=== PATIENT | female | born 1960 | race Two or more races ===

== ENCOUNTER 2017-07-04 23:15 | Emergency (ER) | payer MEDICAID ==
[~2017-07-04] VITALS: Ht 165.1 cm; Wt 68.0 kg
[2017-07-05 05:00] VITALS: BP 142/77
== END 2017-07-05 05:23 | disposition left against medical advice (07) ==
LOC: EDBD 23:15 → ER 23:23
DX: F41.9 Anxiety disorder, unspecified (principal); F32.9 Major depressive disorder, single episode, unspecified; J95.03 Malfunction of tracheostomy stoma; Z86.73 Personal history of transient ischemic attack (TIA), and cerebral infarction without residual deficits; I10 Essential (primary) hypertension; E11.9 Type 2 diabetes mellitus without complications; E78.5 Hyperlipidemia, unspecified; Z46.82 Encounter for fitting and adjustment of non-vascular catheter
CPT/HCPCS: 99284; J7030

== ENCOUNTER 2025-02-24 21:37 | Inpatient (IN) | payer MEDICARE, MEDICAID ==
[~2025-02-24] VITALS: Ht 152.4 cm; Wt 53.0 kg
[2025-02-24 21:56] LABS: Urine Bacteria None Seen /hpf (None Seen)
[2025-02-24 22:22] LABS: Basophils # (auto) 0 10 ^3/uL (0-0.2); Basophils % (auto) 0.4 % (0.0-2.0); Chloride 100 mmol/L (98-107); Eosinophils # (auto) 0 10 ^3/uL (0-0.8); Eosinophils % (auto) 0.3 % (0.0-7.0); Hematocrit 44.8 % (36.0-46.0); Hemoglobin 15.5 g/dL (12.2-16.2); Lymphocytes % (auto) 12.2 % (10.0-50.0); Mean Corpuscular Hemoglobin 32.7 pg (28.0-32.0); Mean Corpuscular Hgb Conc. 34.5 g/dL (32.0-36.0); Mean Corpuscular Volume 94.8 fL (80.0-100.0); Monocytes # (auto) 0.8 10 ^3/uL (0-1.3); Neutrophils # (auto) 6.6 10 ^3/uL (1.6-8.6); Neutrophils % (auto) 78.1 % (37.0-80.0); Nucleated Red Blood Cells % 0.1 %; Platelet Count (auto) 149 10^3/uL (140-450); Red Blood Cells 4.72 10^6/uL (4.0-5.20); Red Cell Distribution Width 13.1 % (11.8-14.3); Sodium 140 mmol/L (136-145); White Blood Cell 8.5 10^3/uL (4.4-10.8)
[2025-02-24 22:23] LABS: Anion Gap 10 (5-15); Carbon Dioxide 30 mmol/L (20-31)
[2025-02-24 22:28] LABS: BUN/Creatinine Ratio 25.5 (10.0-20.0); Blood Urea Nitrogen 13 mg/dL (9-23); Lipase 44 U/L (12-53)
--- NOTE | 2025-02-24 22:28 | ED.PDOC ---
History of Present Illness HPI Comments 64-year-old female is brought in by daughter for 1 day history of intermittent, nonradiating left lower quadrant abdominal pain. Patient has a history of CVA with deficits, prediabetes, hyperlipidemia, hypertension, and PEG tube. She endorses on pain onset every 30 minutes and having no prior history of it in the past. Also reports on 1 isolated episode of small traces of blood in her stool, yesterday. Last bowel movement was today and normal. She denies having any nausea, vomiting, diarrhea, constipation, urinary symptoms, fever, chills, further associated symptoms. Chief Complaint: Abdominal Pain Time Seen by MD: 21:40 Reviewed Notes: Nurses Notes, Medications, Allergies Information Source: Patient, Relative (Child) Mode of Arrival: Wheelchair Severity: Moderate Timing: Days Duration: Since onset Prehospital treatment: None Review of Systems: REVIEW OF SYSTEMS: No fever, no chills, or fatigue HEENT: No sore throat, no earache, no congestion, no neck pain. Cardiac: No chest pain. No palpitations. Lungs: No shortness of breath, no cough. GI: Left lower quadrant pain, no nausea, no vomiting, no diarrhea, no constipation. : No dysuria, frequency, or urgency. No hematuria. Musculoskeletal: No joint pain , no joint swelling, no extremity edema. Skin: No rash, no itching. Neuro: No headache, no dizziness, no weakness Vital Signs Vital Signs Date Time Temp Pulse Resp B/P (MAP) Pulse Ox O2 Delivery O2 Flow Rate FiO2 02/24/25 21:53 98.9 93 18 126/78 (94) 95 98.9 Physical Exam General: Awake, alert and oriented. No acute distress. Skin: Skin in warm, dry and intact. Appropriate color for ethnicity. HEENT: The head is normocephalic and atraumatic. Conjunctivae are clear without exudates or hemorrhage. Sclera is non-icteric. EOM are intact. No signs of nys tagmus. Eyelids are normal in appearance without swelling or lesions. Oral mucosa is pink and moist Neck: The neck is supple with normal range of motion. No JVD. Cardiac: Heart rate and rhythm are normal. No murmurs, gallops, or rubs are auscultated. Respiratory: No signs of respiratory distress. Lung sounds are clear in all lobes bilaterally without rales, rhonchi, or wheezes. Abdominal: Left lower quadrant tenderness. No CVA tenderness. No guarding or rigidity. Otherwise, remaining areas of the abdomen are soft, non-tender without distention, guarding or rigidity. Bowel sounds are present and normoactive in all four quadrants. Extremities: Upper and lower extremities are atraumatic in appearance without deformity or edema. Neurological: The patient is awake, alert and oriented to person, place, and time with normal speech. Speech is clear. There is no facial asymmetry. Psychiatric: Appropriate mood and affect. Good judgement and insight. 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 Was a procedure done?: No Differential Dx Considerations may include: Differential diagnoses considered include: Abdominal aortic aneurysm, DE, esophageal rupture, intestinal obstruction, mesenteric ischemia, perforated viscus or solid organ rupture, CHF with hepatomegaly, pneumonia, abscess, appendicitis, biliary disease, diverticulitis, gastritis, gastroenteritis, hepatitis, hernia, inflammatory bowel disease, pancreatitis, peptic ulcer disease, urinary tract infection, ureteral colic, constipation, GERD, irritable syndrome, abdominal wall pain, nonspecific abdominal pain, herpes zoster, nephrolithiasis. [ ]Also ruptured ectopic , ovarian torsion/cyst, tubo- ovarian abscess, PID, endometriosis, mittelschmerz. X-Ray, Labs, Meds, VS Vital Signs Date Time Temp Pulse Resp B/P (MAP) Pulse Ox O2 Delivery O2 Flow Rate FiO2 02/24/25 21:53 98.9 93 18 126/78 (94) 95 98.9 Lab Test 02/24/25 21:50 02/24/25 02:15 Range/Units White Blood Count 8.5 4.4-10.8 10^3/uL Red Blood Count 4.72 4.0-5.20 10^6/uL Hemoglobin 15.5 12.2-16.2 g/dL Hematocrit 44.8 36.0-46.0 % Mean Corpuscular Volume 94.8 80.0-100.0 fL Mean Corpuscular Hemoglobin 32.7 H 28.0-32.0 pg Mean Corpuscular Hemoglobin Concent 34.5 32.0-36.0 g/dL Red Cell Distribution Width 13.1 11.8-14.3 % Platelet Count 149 140-450 10^3/uL Mean Platelet Volume 9.6 6.9-10.8 fL Neutrophils (%) (Auto) 78.1 37.0-80.0 % Lymphocytes (%) (Auto) 12.2 10.0-50.0 % Monocytes (%) (Auto) 9.0 0.0-12.0 % Eosinophils (%) (Auto) 0.3 0.0-7.0 % Basophils (%) (Auto) 0.4 0.0-2.0 % Neutrophils # (Auto) 6.6 1.6-8.6 10 ^3/uL Lymphocytes # (Auto) 1.0 0.4-5.4 10 ^3/uL Monocytes # (Auto) 0.8 0-1.3 10 ^3/uL Eosinophils # (Auto) 0 0-0.8 10 ^3/uL Basophils # (Auto) 0 0-0.2 10 ^3/uL Nucleated Red Blood Cells 0.1 % Sodium Level 140 136-145 mmol/L Potassium Level 3.3 L 3.5-5.1 mmol/L Chloride Level 100 98-107 mmol/L Carbon Dioxide Level 30 20-31 mmol/L Anion Gap 10 5-15 Blood Urea Nitrogen 13 9-23 mg/dL Creatinine 0.51 L 0.550-1.02 mg/dL Glomerular Filtration Rate Calc 105 >90 mL/min BUN/Creatinine Ratio 25.5 H 10.0-20.0 Serum Glucose 201 H 74-106 mg/dL Lactic Acid Level 1.3 0.4-2.0 mmol/L Calcium Level 9.0 8.7-10.4 mg/dL Lipase 44 12-53 U/L Urine Color Yellow Yellow Urine Clarity Clear Clear Urine pH 8.0 5.0-9.0 Urine Specific [place] 1.021 1.001-1.035 Urine Protein Negative Negative Urine Ketones Negative Negative Urine Blood Negative Negative /uL Urine Nitrite Negative Negative Urine Bilirubin Negative Negative Urine Urobilinogen Normal Negative mg/dL Urine Leukocyte Esterase Negative Negative /uL Urine RBC <1 0 - 4 /hpf Urine Microscopic WBC 1 0-5 /HPF Urine Squamous Epithelial Cells Few <5 /hpf Urine Amorphous Crystals Few None Seen /hpf Urine Bacteria None seen None Seen /hpf Urine Glucose Normal Normal mg/dL [facility] [id number] [place] [id number] Ph: [phone] DIAGNOSTIC IMAGING Diagnostic Imaging Report : [id number] Signed PATIENT: NOE YUAN ACCT: [id number] UNIT: [id number] : 1960 LOC: ER ROOM / BED: / AGE / SEX: 64 / F ADM STATUS: REG ER SERVICE 24 ORDERING PHYSICIAN: TITI ROBLEDO MD PROCEDURE(s): ABPL - CT AB PEL WO CON-NO ORAL OR IV REASON: LLQ abdominal pain ORDER NUMBER(s): [id number], ACCESSION NUMBER(s): [id number] Exam: CT CT AB PEL WO CON-NO ORAL OR IV History: LLQ abdominal pain Comparison Study: None TECHNIQUE: Multidetector CT of the abdomen and pelvis was performed from lung bases to pubic symphysis. Imaging was performed without IV contrast. Axial, coronal, and sagittal multiplanar reformats were obtained from the axial data set by the technologist. RADIATION DOSE: DLP 6.7 mGy.cm; CTDI vol 334.37 mGy. Findings: Limited evaluation of the solid organs in the absence of IV contrast. Lungs: Mild atelectatic changes at the right lung base. Liver: Unremarkable. Gallbladder: Unremarkable. Spleen: Unremarkable. Pancreas: Unremarkable. Adrenals: Unremarkable Kidneys: Unremarkable. GI tract: No bowel obstruction. Gastric tube is noted. There is colonic diverticulosis with wall thickening and stranding about the distal descending colon. No abscess. The appendix is normal. : Unremarkable. Vasculature: Mild atherosclerotic aortoiliac calcifications. There is an 8 mm calcified splenic artery aneurysm. Lymphadenopathy: Absent Peritoneum: No ascites. Musculoskeletal: Multifocal mild age-indeterminate compression fractures associated with Schmorl's nodes involving the thoracolumbar spine, most pronounced at L4. Soft tissues: Tiny fat containing umbilical hernia. Impression: 1. Findings as above suggestive of acute diverticulitis in the appropriate clinical setting. No abscess. A posttreatment follow-up is suggested to ensure appropriate resolution and lack of underlying lesion. 2. Multifocal mild age-indeterminate compression fractures associated with Schmorl's nodes involving the thoracolumbar spine, most pronounced at L4. 3. Additional findings as detailed. ATED BY: KARIE DESIR MD DICTATED DATE/TIME: 02/24/252305 SIGNED BY: KARIE DESIR MD SIGNED DATE/TIME: 02/24/252305 CC: Time of 1ST Reevaluation: 22:10 Reevaluation 1ST: Unchanged Patient Education/Counseling: Treatment Family Education/Counseling: Treatment SEPSIS Sepsis Screen Date sepsis recognized/suspect: Feb 24, 2025 Time Sepsis recognized/suspect: 2144 Recent Procedure: No On Antibiotic Therapy: No Respiratory Rate >20: No Heart Rate >90: Yes Temp<36 C (96.8 F) or >38.3 C: No SBP <90 or MAP <65 mmHG: No New Acute Mental Status Change: No Is the patient on CPAP, BIPAP,: No Physician Orders Ct Ab Pel Wo Con-No Oral Or Iv (02/24/25 22:25) Vital Signs Date Time Temp Pulse Resp B/P (MAP) Pulse Ox O2 Delivery O2 Flow Rate FiO2 02/24/25 21:53 98.9 93 18 126/78 (94) 95 98.9 Laboratory Tests Test 02/24/25 21:50 Lactic Acid Level 1.3 mmol/L (0.4-2.0) White Blood Count 8.5 10^3/uL (4.4-10.8) Departure 1 Departure Time of Disposition: 23:43 Impression: Primary Impression: Diverticulitis of intestine Additional Impression: Hypokalemia Disposition: ADMITTED INPATIENT Condition: Stable Comments 64-year-old female who presented with left lower quadrant abdominal pain. CT abdomen and pelvis showed diverticulitis. Antibiotics initiated in the ED Patient admitted to hospitalist service for further treatment, evaluation and monitoring. Extensive evaluation was performed in attempt to identify or rule out: (See differential diagnosis section) The following tests were ordered, and results were reviewed by me and discussed with patient: (See diagnostic results section) The following test were independently interpreted by me: N/A I reviewed and agreed with the following test results read by other providers: N/A I reviewed the following notes from the pt's past medical encounters: July 04, 2017 encounter for SOB/pulled out trach Additional information was gathered from interviewing the following independent historians: Patient's daughter at bedside Discussion of management or test interpretation with external physician/other qualified health rn intensive care unit: N/A Addressed]an acute or chronic illness that poses a threat to life or bodily function: Diverticulitis Decision regarding hospitalization or escalation of hospital level of care: Risk and benefits of admission for further treatment of patient's condition was considered. Due to patient's current clinical condition, high risk of decline and poor outcome if discharged and need for further inpatient management and monitoring, patient will be admitted to the hospital. Drug therapy requiring intensive monitoring for toxicity: N/A Parenteral controlled substances: N/A Decision regarding elective major surgery with identified patient or procedure risk factors: N/A Decision regarding emergency major surgery: N/A Decision not to resuscitate or to de-escalate care because of poor prognosis: N/A Diagnosis or treatment significantly limited by social determinants of health: N/A Critical Care Note Critical Care Time?: No Stability Stability form required: No Heart Score Heart Score: Heart Score Response (Comments) Value History N/A 0 EKG N/A 0 Age N/A 0 Risk Factors N/A 0 Troponin N/A 0 Total 0 I personally scribed for TITI ROBLEDO MD ([email or web address]) on 02/24/25 at 22:28. Electronically submitted by Dawit Reyes ([email or web address]). I personally scribed for TITI ROBLEDO MD ([email or web address]) on 02/24/25 at 23:36. Electronically submitted by Dawit Reyes ([email or web address]). TITI ROBLEDO MD Feb 24, 2025 22:28
[2025-02-24 22:34] LABS: Urine Amorphous Crystal FEW /hpf (None Seen); Urine Blood Negative /uL (Negative); Urine Clarity Clear (Clear); Urine Color Yellow (Yellow); Urine Protein, UAD Negative (Negative); Urine Specific Gravity 1.021 (1.001-1.035); Urine Squamous Epithelial Cell FEW /hpf (<5); Urine Urobilinogen Normal (Negative); Urine WBC 1 /HPF (0-5)
[2025-02-24 22:37] LABS: Glucose 201 mg/dL (74-106); Potassium 3.3 mmol/L (3.5-5.1)
--- NOTE | 2025-02-24 23:08 | DVH ---
Exam: CT CT AB PEL WO CON-NO ORAL OR IV History: LLQ abdominal pain Comparison Study: None TECHNIQUE: Multidetector CT of the abdomen and pelvis was performed from lung bases to pubic symphysi s. Imaging was performed without IV contrast. Axial, coronal, and sagittal multiplanar reformats were obtained from the axial data set by the technologist. RADIATION DOSE: DLP 6.7 mGy.cm; CTDI vol 334.37 mGy. Findings: Limited evaluation of the solid organs in the absence of IV contrast. Lungs: Mild atelectatic changes at the right lung base. Liver: Unremarkable. Gallbladder: Unremarkable. Spleen: Unremarkable. Pancreas: Unremarkable. Adrenals: Unremarkable Kidneys: Unremarkable. GI tract: No bowel obstruction. Gastric tube is noted. There is colonic diverticulosis with wall thic kening and stranding about the distal descending colon. No abscess. The appendix is normal. : Unremarkable. Vasculature: Mild atherosclerotic aortoiliac calcifications. There is an 8 mm calcified splenic arter y aneurysm. Lymphadenopathy: Absent Peritoneum: No ascites. Musculoskeletal: Multifocal mild age-indeterminate compression fractures associated with Schmorl's no raheel involving the thoracolumbar spine, most pronounced at L4. Soft tissues: Tiny fat containing umbilical hernia. Impression: 1. Findings as above suggestive of acute diverticulitis in the appropriate clinical setting. No absce ss. A posttreatment follow-up is suggested to ensure appropriate resolution and lack of underlying le ramirez. 2. Multifocal mild age-indeterminate compression fractures associated with Schmorl's nodes involving the thoracolumbar spine, most pronounced at L4. 3. Additional findings as detailed.
[2025-02-25] MEDS: POTASSIUM CHL 20 Meq TABLET PO ONE
[2025-02-25] MEDS ORDERED: ONDANSETRON HCL 4 MG/2 ML VIAL IV PRN (00:15)
[2025-02-25] MEDS ORDERED: DEXTROSE (50%) 50ML SYRG IV PRN (00:15)
[2025-02-25] MEDS: levoFLOXacin 500MG 100 ML IV ONE (00:21)
--- NOTE | 2025-02-25 01:01 | DVHHP2 ---
History of Present Illness Reason for Visit: Abdominal pain History of Present Illness 64-year-old female presents for evaluation of abdominal pain. Patient endorses a one day history of sharp lower abdominal pain that is nonradiating. Denies nausea or vomiting. No fever or chills. No diarrhea. Past Medical History CVA, hypertension, dyslipidemia, diabetes Past Surgical History Hysterectomy, peg tube Family History Noncontributory Smoke: No ALCOHOL: none Drugs: None Lives: with Family Review of Systems Review of Systems Review of systems are currently negative otherwise addressed in HPI. Allergies: Coded Allergies: NO KNOWN ALLERGIES (Unverified , 02/24/25) Medications Current Medications Medications Dose Ordered Sig/Ar Route Start Time Stop Time Status Last Admin Dose Admin Ceftriaxone Sodium 50 ml @ 100 mls/hr DAILY@09 IV 02/25/25 09:00 Metronidazole 100 ml @ 100 mls/hr Q8HR@0000,0800,1600 IV 02/25/25 08:00 Pantoprazole Sodium 40 mg DAILY IV 02/25/25 10:00 Acetaminophen/ Hydrocodone Bitart 1 tab Q4HP PRN PO 02/25/25 00:15 Ondansetron HCl 4 mg Q4HP PRN IV 02/25/25 00:15 Acetaminophen 650 mg Q6HP PRN PO 02/25/25 00:15 Diagnostic Test (Pha) 1 strip ACHS 02/25/25 07:00 Insulin Human Regular ACHS SC 02/25/25 07:00 Dextrose 50 ml UD PRN IV 02/25/25 00:15 Exam Vital Signs Vital Signs Date Time Temp Pulse Resp B/P (MAP) Pulse Ox O2 Delivery O2 Flow Rate FiO2 02/24/25 21:53 98.9 93 18 126/78 (94) 95 98.9 Exam Gen: 64-year-old female in mild distress Skin: Warm, dry, normal color and texture, no rash. HEENT: Normocephalic atraumatic, mucous membranes moist and pink. Neck: Cervical and supraclavicular nodes normal without enlargement, trachea is midline, thyroid gland is normal without masses. Pulmonary: Clear to auscultation and percussion bilaterally. Cardiac: Regular rate and rhythm. No murmur Abdomen: Soft, lower abdominal tenderness, nondistended, bowel sounds present all 4 quadrants, no guarding, no rigidity, no organomegaly. Extremities: No cyanosis, clubbing, no edema Neuro: History of CVA with speech deficits Labs/Xrays ORDERING PHYSICIAN: TITI ROBLEDO MD PROCEDURE(s): ABPL - CT AB PEL WO CON-NO ORAL OR IV REASON: LLQ abdominal pain ORDER NUMBER(s): [id number], ACCESSION NUMBER(s): [id number] Exam: CT CT AB PEL WO CON-NO ORAL OR IV History: LLQ abdominal pain Comparison Study: None TECHNIQUE: Multidetector CT of the abdomen and pelvis was performed from lung bases to pubic symphysis. Imaging was performed without IV contrast. Axial, coronal, and sagittal multiplanar reformats were obtained from the axial data set by the technologist. RADIATION DOSE: DLP 6.7 mGy.cm; CTDI vol 334.37 mGy. Findings: Limited evaluation of the solid organs in the absence of IV contrast. Lungs: Mild atelectatic changes at the right lung base. Liver: Unremarkable. Gallbladder: Unremarkable. Spleen: Unremarkable. Pancreas: Unremarkable. Adrenals: Unremarkable Kidneys: Unremarkable. GI tract: No bowel obstruction. Gastric tube is noted. There is colonic diverticulosis with wall thickening and stranding about the distal descending colon. No abscess. The appendix is normal. : Unremarkable. Vasculature: Mild atherosclerotic aortoiliac calcifications. There is an 8 mm calcified splenic artery aneurysm. Lymphadenopathy: Absent Peritoneum: No ascites. Musculoskeletal: Multifocal mild age-indeterminate compression fractures associated with Schmorl's nodes involving the thoracolumbar spine, most pronoun bella at L4. Soft tissues: Tiny fat containing umbilical hernia. Impression: 1. Findings as above suggestive of acute diverticulitis in the appropriate clinical setting. No abscess. A posttreatment follow-up is suggested to ensure appropriate resolution and lack of underlying lesion. 2. Multifocal mild age-indeterminate compression fractures associated with Schmorl's nodes involving the thoracolumbar spine, most pronounced at L4. 3. Additional findings as detailed. ATED BY: KARIE DESIR MD Labs Test 02/24/25 21:50 02/24/25 02:15 Range/Units White Blood Count 8.5 4.4-10.8 10^3/uL Red Blood Count 4.72 4.0-5.20 10^6/uL Hemoglobin 15.5 12.2-16.2 g/dL Hematocrit 44.8 36.0-46.0 % Mean Corpuscular Volume 94.8 80.0-100.0 fL Mean Corpuscular Hemoglobin 32.7 H 28.0-32.0 pg Mean Corpuscular Hemoglobin Concent 34.5 32.0-36.0 g/dL Red Cell Distribution Width 13.1 11.8-14.3 % Platelet Count 149 140-450 10^3/uL Mean Platelet Volume 9.6 6.9-10.8 fL Neutrophils (%) (Auto) 78.1 37.0-80.0 % Lymphocytes (%) (Auto) 12.2 10.0-50.0 % Monocytes (%) (Auto) 9.0 0.0-12.0 % Eosinophils (%) (Auto) 0.3 0.0-7.0 % Basophils (%) (Auto) 0.4 0.0-2.0 % Neutrophils # (Auto) 6.6 1.6-8.6 10 ^3/uL Lymphocytes # (Auto) 1.0 0.4-5.4 10 ^3/uL Monocytes # (Auto) 0.8 0-1.3 10 ^3/uL Eosinophils # (Auto) 0 0-0.8 10 ^3/uL Basophils # (Auto) 0 0-0.2 10 ^3/uL Nucleated Red Blood Cells 0.1 % Sodium Level 140 136-145 mmol/L Potassium Level 3.3 L 3.5-5.1 mmol/L Chloride Level 100 98-107 mmol/L Carbon Dioxide Level 30 20-31 mmol/L Anion Gap 10 5-15 Blood Urea Nitrogen 13 9-23 mg/dL Creatinine 0.51 L 0.550-1.02 mg/dL Glomerular Filtration Rate Calc 105 >90 mL/min BUN/Creatinine Ratio 25.5 H 10.0-20.0 Serum Glucose 201 H 74-106 mg/dL Lactic Acid Level 1.3 0.4-2.0 mmol/L Calcium Level 9.0 8.7-10.4 mg/dL Lipase 44 12-53 U/L Urine Color Yellow Yellow Urine Clarity Clear Clear Urine pH 8.0 5.0-9.0 Urine Specific [place] 1.021 1.001-1.035 Urine Protein Negative Negative Urine Ketones Negative Negative Urine Blood Negative Negative /uL Urine Nitrite Negative Negative Urine Bilirubin Negative Negative Urine Urobilinogen Normal Negative mg/dL Urine Leukocyte Esterase Negative Negative /uL Urine RBC <1 0 - 4 /hpf Urine Microscopic WBC 1 0-5 /HPF Urine Squamous Epithelial Cells Few <5 /hpf Urine Amorphous Crystals Few None Seen /hpf Urine Bacteria None seen None Seen /hpf Urine Glucose Normal Normal mg/dL Assessment/Plan Assessment/Plan Assessment Acute abdominal pain Acute diverticulitis Hypokalemia Diabetes mellitus History of CVA Plan Admit the patient to [facility] to the hospitalist Heather/Flagyl GI consult Pain management Continue treatment per orders. Plan discussed with: Patient My Orders Orders - CRICKET SIERRA Procedure Category Date Status Time Admit ADMIT 02/24/25 Transmitted 23:58 Ceftriaxone 1gm/50ml PHA 02/25/25 In Process D5w (Rocephin) 09:00 * [facility] Assistant CONS 02/25/25 Transmitted 00:12 Pantoprazole PHA 02/25/25 In Process (Protonix) 10:00 Hydrocodone-Acet PHA 02/25/25 In Process 5/325mg Tab ([place]inn 00:15 Ondansetron Hcl PHA 02/25/25 In Process (Zofran) 00:15 Complete Blood Count LAB 02/26/25 Verified 04:00 Condition: Stable NEO 02/25/25 In Process 00:12 Acetaminophen Tablet PHA 02/25/25 In Process (Tylenol Tablet) 00:15 Glucose Blood PHA 02/25/25 In Process (Accu-Chek Comfort 07:00 Insulin R (Human) PHA 02/25/25 In Process (Insulin R) 07:00 Dextrose 50% Syringe PHA 02/25/25 In Process 00:15 Basic Metabolic Panel LAB 02/26/25 Verified 04:00 Metronidazole PHA 02/25/25 In Process 500mg/100ml (Flagyl 08:00 Date of Service: Feb 24, 2025 Billing Provider: CRICKET SIERRA Common Visit Codes: [id number] INP/OBS CARE (HIGH) CRICKET SIERRA Feb 25, 2025 01:01
[2025-02-25] MEDS: metroNIDAZOLE 500MG/100ML 100 ML IV ONE (01:25)
[2025-02-25] MEDS: HYDROcodone-ACET 5/325MG TAB PO PRN (02:32)
[2025-02-25] MEDS: KETOROLAC TROMETH 30 MG/ML 1ML VIAL IV ONE (03:55)
[2025-02-25] MEDS: SODIUM CHLORIDE 0.9% 1,000 ML IV ONE (03:58)
[2025-02-25] MEDS: ACETAMINOPHEN 325 MG TAB PO PRN (04:51)
[2025-02-25] MEDS: ACCU-CHEK COMFORT CURVE STRIP VI SCH (07:40)
[2025-02-25] MEDS: InsuLIN REG 1unit/0.01ml Soln (100units/ml) SC SCH (07:47)
[2025-02-25 07:54] VITALS: PULSE 78; RESP 20; O2SAT 94
[2025-02-25] MEDS: metroNIDAZOLE 500MG/100ML 100 ML IV SCH (08:56)
[2025-02-25] MEDS: cefTRIAXone 1GM/50ML D5W 50 ML IV SCH (10:31)
[2025-02-25] MEDS: PANTOPRAZOLE 40 MG/10 ML VIAL INJ IV SCH (10:31)
[2025-02-25 14:49] VITALS: BP 121/72; PULSE 79; RESP 17; TEMP 97.2; O2SAT 97
[2025-02-25] MEDS ORDERED: TRAZ-228 PO (14:53)
[2025-02-25] MEDS ORDERED: ATOR-47 PO (14:53)
[2025-02-25 16:30] VITALS: BP 120/77; PULSE 82; RESP 17; TEMP 97.5; O2SAT 94
--- NOTE | 2025-02-25 17:32 | DVHPN2 ---
Subjective Seen and examined at bedside, daughter at bedside. Patient has a CVA with PEG Tube. Changes from previous H/P or p: No Changes Objective Vitals Vital Signs Date Time Temp Pulse Resp B/P (MAP) Pulse Ox O2 Delivery O2 Flow Rate FiO2 02/25/25 16:30 97.5 82 17 120/77 (91) 94 97.5 02/25/25 14:49 Room Air* 0 21 General Appearance: Alert, Oriented X3, Cooperative, No acute distress HEENT: Atraumatic Lungs: Clear to auscultation Cardiovascular: Regular rate, Normal S1, Normal S2 Abdomen: Other (Epigastric Tenderness. PEG Tube) Rectal: Deferred Musculoskeletal: Normal sensory function Psych/Mental Status: Mental status NL Medications Current Medications Medications Dose Ordered Sig/Ar Route Start Time Stop Time Status Last Admin Dose Admin Ceftriaxone Sodium 50 ml @ 100 mls/hr DAILY@09 IV 02/25/25 09:00 02/25/25 10:31 100 MLS/HR Metronidazole 100 ml @ 100 mls/hr Q8HR@0000,0800,1600 IV 02/25/25 08:00 02/25/25 16:57 100 MLS/HR Pantoprazole Sodium 40 mg DAILY IV 02/25/25 10:00 02/25/25 10:31 40 MG Acetaminophen/ Hydrocodone Bitart 1 tab Q4HP PRN PO 02/25/25 00:15 Ondansetron HCl 4 mg Q4HP PRN IV 02/25/25 00:15 Acetaminophen 650 mg Q6HP PRN PO 02/25/25 00:15 02/25/25 04:51 650 MG Diagnostic Test (Pha) 1 strip ACHS 02/25/25 07:00 02/25/25 17:05 1 STRIP Insulin Human Regular ACHS SC 02/25/25 07:00 02/25/25 14:31 4 UNITS Dextrose 50 ml UD PRN IV 02/25/25 00:15 Laboratory Results Laboratory Tests 02/24/25 21:50 Chemistry Test 02/24/25 21:50 Calcium Level 9.0 mg/dL (8.7-10.4) Lipid panel Test 02/24/25 21:50 Lipase 44 U/L (12-53) HgA1c, TSH Test 02/24/25 21:50 Hemoglobin A1c 6.9 % A1C (<5.7) H Urinalysis Test 02/24/25 02:15 Urine Color Yellow (Yellow) Urine Clarity Clear (Clear) Urine pH 8.0 (5.0-9.0) Urine Specific [place] 1.021 (1.001-1.035) Urine Protein Negative (Negative) Urine Ketones Negative (Negative) Urine Blood Negative /uL (Negative) Urine Nitrite Negative (Negative) Urine Bilirubin Negative (Negative) Urine Urobilinogen Normal mg/dL (Negative) Urine Leukocyte Esterase Negative /uL (Negative) Urine RBC <1 /hpf (0 - 4) Urine Microscopic WBC 1 /HPF (0-5) Urine Squamous Epithelial Cells Few /hpf (<5) Urine Amorphous Crystals Few /hpf (None Seen) Urine Bacteria None seen /hpf (None Seen) Urine Glucose Normal mg/dL (Normal) Assessment/Plan Assessment/Plan Acute abdominal pain due to Acute diverticulitis- No Tube Feedings. Hypokalemia- Supplemented Diabetes mellitus A1c 6.9- SSI History of CVA unable to speak. Goals of care discussion >18 mins FULL CODE Plan discussed with: Patient My Orders Orders - YOMAIRA FARAH MD Procedure Category Date Status Time Comprehensive LAB 02/26/25 Verified Metabolic Panel 04:00 Magnesium LAB 02/26/25 Verified 04:00 Date of Service: Feb 25, 2025 Billing Provider: YOMAIRA FARAH MD Common Visit Codes: [id number] INP/OBS CARE(HIGH) Secondary Visit Codes: [id number] CARE PLAN 30 MINUTES YOMAIRA FARAH MD Feb 25, 2025 17:32
[2025-02-25 21:00] VITALS: BP 117/76; PULSE 79; RESP 17; TEMP 97.5; O2SAT 94
[2025-02-25] MEDS: MORPHINE SULFATE INJ 2 MG/ml SYRG IV PRN (21:51)
--- NOTE | 2025-02-25 22:36 | DVHINCON2 ---
Date of service: Feb 25, 2025 Referring Physician Josue Bagley Reason for Consultation Acute diverticulitis History of Present Illness 64-year-old female presents for evaluation of abdominal pain. Patient endorses a one day history of sharp lower abdominal pain that is nonradiating. Denies nausea or vomiting. No fever or chills. No diarrhea. Past Medical History Past Medical History CVA, hypertension, dyslipidemia, diabetes Past Surgical History Past Surgical History Hysterectomy, peg tube Family History: Diabetes mellitus G8 MOTHER Allergies: Coded Allergies: Codeine (Verified Allergy, Unknown, 02/25/25) Iodine (Verified Allergy, Unknown, 02/25/25) Metrizamide (Verified Allergy, Unknown, 02/25/25) Yellow Dye (Verified Allergy, Unknown, 02/25/25) Uncoded Allergies: CONTRAST (Adverse Reaction, Intermediate, 02/25/25) Home Meds Reported Medications Atorvastatin Calcium (ATORVASTATIN CALCIUM) 80 Mg Tab, 1 TAB PO DAILY, #30 TAB 5 Refills 02/25/25 Trazodone Hcl (Trazodone Hcl) 100 Mg Tab, 1 TAB PO QPM, #30 TAB 1 Refill 02/25/25 Current Medications Current Medications Medications (Trade) Dose Ordered Sig/Ar Route PRN Reason Start Time Stop Time Status Last Admin Ceftriaxone Sodium 50 ml @ 100 mls/hr DAILY@09 IV 02/25/25 09:00 02/25/25 10:31 Metronidazole 100 ml @ 100 mls/hr Q8HR@0000,0800,1600 IV 02/25/25 08:00 02/25/25 16:57 Pantoprazole Sodium (Protonix) 40 mg DAILY IV 02/25/25 10:00 02/25/25 10:31 Acetaminophen/ Hydrocodone Bitart ([place] 5/325MG Tab) 1 tab Q4HP PRN PO MODERATE PAIN (4-6 PAIN SCALE) 02/25/25 00:15 Ondansetron HCl (Zofran) 4 mg Q4HP PRN IV NAUSEA / VOMITING 02/25/25 00:15 Acetaminophen (Tylenol Tablet) 650 mg Q6HP PRN PO PAIN SCALE 1-3 OR TEMP>100.4 02/25/25 00:15 02/25/25 04:51 Diagnostic Test (Pha) (Accu-Chek Comfort Curve T) 1 strip ACHS 02/25/25 07:00 02/25/25 22:09 Insulin Human Regular (InsuLIN R) ACHS SC 02/25/25 07:00 02/25/25 22:15 Dextrose 50 ml UD PRN IV Blood Sugar LESS THAN 60 02/25/25 00:15 Morphine Sulfate 1 mg Q4HP PRN IV SEVERE PAIN (7-10 PAIN SCALE) 02/25/25 18:30 02/25/25 21:51 Vital Signs Vital Signs Date Time Temp Pulse Resp B/P (MAP) Pulse Ox O2 Delivery O2 Flow Rate FiO2 02/25/25 21:51 79 17 117/76 02/25/25 21:00 97.5 94 97.5 02/25/25 14:49 Room Air* 0 21 Physical Exam Gen: 64-year-old female in mild distress Skin: Warm, dry, normal color and texture, no rash. HEENT: Normocephalic atraumatic, mucous membranes moist and pink. Neck: Cervical and supraclavicular nodes normal without enlargement, trachea is midline, thyroid gland is normal without masses. Pulmonary: Clear to auscultation and percussion bilaterally. Cardiac: Regular rate and rhythm. No murmur Abdomen: Soft, lower abdominal tenderness, nondistended, bowel sounds present all 4 quadrants, no guarding, no rigidity, no organomegaly. Extremities: No cyanosis, clubbing, no edema Neuro: History of CVA with speech deficits Labs/Diagnostic Data Labs Test 02/25/25 21:47 02/24/25 21:50 02/24/25 02:15 Range/Units POC Glucose 133 H 70-106 mg/dl White Blood Count 8.5 4.4-10.8 10^3/uL Red Blood Count 4.72 4.0-5.20 10^6/uL Hemoglobin 15.5 12.2-16.2 g/dL Hematocrit 44.8 36.0-46.0 % Mean Corpuscular Volume 94.8 80.0-100.0 fL Mean Corpuscular Hemoglobin 32.7 H 28.0-32.0 pg Mean Corpuscular Hemoglobin Concent 34.5 32.0-36.0 g/dL Red Cell Distribution Width 13.1 11.8-14.3 % Platelet Count 149 140-450 10^3/uL Mean Platelet Volume 9.6 6.9-10.8 fL Neutrophils (%) (Auto) 78.1 37.0-80.0 % Lymphocytes (%) (Auto) 12.2 10.0-50.0 % Monocytes (%) (Auto) 9.0 0.0-12.0 % Eosinophils (%) (Auto) 0.3 0.0-7.0 % Basophils (%) (Auto) 0.4 0.0-2.0 % Neutrophils # (Auto) 6.6 1.6-8.6 10 ^3/uL Lymphocytes # (Auto) 1.0 0.4-5.4 10 ^3/uL Monocytes # (Auto) 0.8 0-1.3 10 ^3/uL Eosinophils # (Auto) 0 0-0.8 10 ^3/uL Basophils # (Auto) 0 0-0.2 10 ^3/uL Nucleated Red Blood Cells 0.1 % Sodium Level 140 136-145 mmol/L Potassium Level 3.3 L 3.5-5.1 mmol/L Chloride Level 100 98-107 mmol/L Carbon Dioxide Level 30 20-31 mmol/L Anion Gap 10 5-15 Blood Urea Nitrogen 13 9-23 mg/dL Creatinine 0.51 L 0.550-1.02 mg/dL Glomerular Filtration Rate Calc 105 >90 mL/min BUN/Creatinine Ratio 25.5 H 10.0-20.0 Serum Glucose 201 H 74-106 mg/dL Hemoglobin A1c 6.9 H <5.7 % A1C Lactic Acid Level 1.3 0.4-2.0 mmol/L Calcium Level 9.0 8.7-10.4 mg/dL Lipase 44 12-53 U/L Urine Color Yellow Yellow Urine Clarity Clear Clear Urine pH 8.0 5.0-9.0 Urine Specific [place] 1.021 1.001-1.035 Urine Protein Negative Negative Urine Ketones Negative Negative Urine Blood Negative Negative /uL Urine Nitrite Negative Negative Urine Bilirubin Negative Negative Urine Urobilinogen Normal Negative mg/dL Urine Leukocyte Esterase Negative Negative /uL Urine RBC <1 0 - 4 /hpf Urine Microscopic WBC 1 0-5 /HPF Urine Squamous Epithelial Cells Few <5 /hpf Urine Amorphous Crystals Few None Seen /hpf Urine Bacteria None seen None Seen /hpf Urine Glucose Normal Normal mg/dL Impression: 1. Findings as above suggestive of acute diverticulitis in the appropriate clinical setting. No abscess. A posttreatment follow-up is suggested to ensure appropriate resolution and lack of underlying lesion. 2. Multifocal mild age-indeterminate compression fractures associated with Schmorl's nodes involving the thoracolumbar spine, most pronounced at L4. 3. Additional findings as detailed. Problems(with codes): (1) Diverticulitis of intestine (2) Hypokalemia Plan/Recommendation Plan Continue IV fluid hydration Continue IV antibiotics ; discharge planning on oral antibiotics Start with ice chips and water and advance to clear liquid diet Outpatient follow up with GI Services for elective colonoscopy Plan discussed with: Other (None) NAE DELGADO MD Feb 25, 2025 22:36
[2025-02-26] VITALS (8 sets, daily range): BP systolic 100–128; BP diastolic 64–73; PULSE 74–83; RESP 16–18; TEMP 97.2–98.3; O2SAT 94–96
[2025-02-26 05:59] LABS: Basophils # (auto) 0 10 ^3/uL (0-0.2); Basophils % (auto) 0.3 % (0.0-2.0); Eosinophils # (auto) 0.1 10 ^3/uL (0-0.8); Hematocrit 40.8 % (36.0-46.0); Lymphocytes # (auto) 0.9 10 ^3/uL (0.4-5.4); Lymphocytes % (auto) 14.4 % (10.0-50.0); Mean Corpuscular Hemoglobin 32.6 pg (28.0-32.0); Mean Corpuscular Hgb Conc. 34.3 g/dL (32.0-36.0); Monocytes # (auto) 0.6 10 ^3/uL (0-1.3); Neutrophils # (auto) 4.7 10 ^3/uL (1.6-8.6); Neutrophils % (auto) 74.3 % (37.0-80.0); Platelet Count (auto) 137 10^3/uL (140-450); Red Blood Cells 4.29 10^6/uL (4.0-5.20); Red Cell Distribution Width 13.1 % (11.8-14.3); White Blood Cell 6.4 10^3/uL (4.4-10.8)
[2025-02-26 06:17] LABS: Alanine Aminotransferase 22 U/L (7-40); Albumin 3.9 g/dL (3.2-4.8); Alkaline Phosphatase 112 U/L (46-116); Anion Gap 8 (5-15); Aspartate Aminotransferase 21 U/L (<34); BUN/Creatinine Ratio 26.4 (10.0-20.0); Bilirubin, Total 0.8 mg/dL (0.2-1.0); Blood Urea Nitrogen 14 mg/dL (9-23); Calcium 8.9 mg/dL (8.7-10.4); Chloride 104 mmol/L (98-107); Glucose 94 mg/dL (74-106); Magnesium 2.5 mg/dL (1.6-2.6); Potassium 3.8 mmol/L (3.5-5.1); Sodium 145 mmol/L (136-145); Total Protein 6.2 g/dL (5.7-8.2)
[2025-02-26 06:23] LABS: Carbon Dioxide 33 mmol/L (20-31)
--- NOTE | 2025-02-26 11:54 | DVHPN2 ---
Progress Note Date Seen: Feb 26, 2025 Resident Creating Document: ANGELA CASH RESIDENT Medical Necessity Reason Pt with a Central, PICC or Fol: No Subjective Review of Systems Patient is 64 years old female with past medical history of CVA, hypertension, dyslipidemia, diabetes, history of PEG tube after stroke came with a complaint of abdominal pain sharp in nature. CT abdomen revealed- acute diverticulitis in the appropriate clinical setting. No abscess.. Multifocal mild age- indeterminate compression fractures associated with Schmorl's nodes involving the thoracolumbar spine, most pronounced at L4. Patient was seen today for clinical evaluation at bedside Patient reported intermittent crampy abdominal pain but pain better than Due for dietary consult As per patient she did not have a bowel movement last 3 days Patient has a PEG tube placed after patient had stroke Patient reported no previous endoscopy or colonoscopy Objective vital signs Vital Sign Date Time Temp Pulse Resp B/P (MAP) Pulse Ox O2 Delivery O2 Flow Rate FiO2 02/26/25 09:00 97.2 74 17 111/72 (85) 95 97.2 02/25/25 20:00 Room Air* 0 21 Total Intake and Output 02/25/25 02/25/25 02/26/25 15:00 23:00 07:00 Intake Total 100 ml 0 ml Balance 100 ml 0 ml medications Current Medications Medications Dose Ordered Sig/Ar Route Start Time Stop Time Status Last Admin Dose Admin Ceftriaxone Sodium 50 ml @ 100 mls/hr DAILY@09 IV 02/25/25 09:00 02/26/25 09:57 100 MLS/HR Metronidazole 100 ml @ 100 mls/hr Q8HR@0000,0800,1600 IV 02/25/25 08:00 02/26/25 09:57 100 MLS/HR Pantoprazole Sodium 40 mg DAILY IV 02/25/25 10:00 02/26/25 09:57 40 MG Acetaminophen/ Hydrocodone Bitart 1 tab Q4HP PRN PO 02/25/25 00:15 Ondansetron HCl 4 mg Q4HP PRN IV 02/25/25 00:15 Acetaminophen 650 mg Q6HP PRN PO 02/25/25 00:15 02/25/25 04:51 650 MG Diagnostic Test (Pha) 1 strip ACHS 02/25/25 07:00 02/26/25 06:01 1 STRIP Insulin Human Regular ACHS SC 02/25/25 07:00 02/25/25 22:15 2 UNITS Dextrose 50 ml UD PRN IV 02/25/25 00:15 Morphine Sulfate 1 mg Q4HP PRN IV 02/25/25 18:30 02/25/25 21:51 1 MG laboratory and microbiology Laboratory Tests 02/26/25 04:59 Test 02/26/25 04:59 Range/Units Serum Glucose 94 74-106 mg/dL Problem List/Assessment/Plan Problem List/Assessment/Plan Assessment and plan Acute diverticulitis of colon CVA Hypokalemia, resolved Events HGB A1c 6.9 Patient reported intermittent crampy abdominal pain but pain improved than before As per patient she did not have a bowel movement last 3 days Patient has a PEG tube placed after patient had stroke Patient reported no previous endoscopy or colonoscopy Pending dietary consult Plan Ordered MiraLax 1 time He started PEG tube feeding glycerin 1 can 4 times a day Continue IV fluid hydration Continue IV antibiotics ; discharge planning on oral antibiotics Continue pantoprazole as prescribed Avoid dehydration and constipation Outpatient follow up with GI Services for elective colonoscopy Plan discussed with Dr. Maude Bruce , nursing staff, Total time spent on patient evaluation, chart review, assessment and plan, discussion discussion >35 minutes Plan discussed with: Patient, Other (RN) ANGELA CASH RESIDENT Feb 26, 2025 11:54
[2025-02-26] MEDS: SODIUM CHLORIDE 0.9% 1,000 ML IV SCH (12:00)
[2025-02-26] MEDS ORDERED: LACTULOSE 20Gm/30ML SOLN PEG ONE (12:00)
[2025-02-26] MEDS: ENOXAPARIN SOD 40 MG/0.4 ML SYRINGE SC ONE (12:15)
[2025-02-26] MEDS: POLYETHYLENE GLYCOL 17 GM PWDR PEG ONE (12:30)
--- NOTE | 2025-02-26 13:03 | DVHPN2 ---
Subjective Seen and examined at bedside, daughter at bedside. Patient has a CVA with PEG Tube. Will attempt to start Glucerna through PEG tube, if tolerates can DC home on PO Abx tomorrow. Changes from previous H/P or p: No Changes Objective Vitals Vital Signs Date Time Temp Pulse Resp B/P (MAP) Pulse Ox O2 Delivery O2 Flow Rate FiO2 02/26/25 12:33 97.6 79 16 113/73 (86) 96 97.6 02/26/25 08:25 Room Air* 0 21 Intake/Output Intake and Output 02/26/25 07:00 Intake Total 100 ml Balance 100 ml Intake Oral 0 ml IV Total 100 ml # Voids 2 General Appearance: Alert, Oriented X3, Cooperative, No acute distress HEENT: Atraumatic Lungs: Clear to auscultation Cardiovascular: Regular rate, Normal S1, Normal S2 Abdomen: Other (Epigastric Tenderness. PEG Tube) Rectal: Deferred Musculoskeletal: Normal sensory function Psych/Mental Status: Mental status NL Medications Current Medications Medications Dose Ordered Sig/Ar Route Start Time Stop Time Status Last Admin Dose Admin Ceftriaxone Sodium 50 ml @ 100 mls/hr DAILY@09 IV 02/25/25 09:00 02/26/25 09:57 100 MLS/HR Metronidazole 100 ml @ 100 mls/hr Q8HR@0000,0800,1600 IV 02/25/25 08:00 02/26/25 09:57 100 MLS/HR Pantoprazole Sodium 40 mg DAILY IV 02/25/25 10:00 02/26/25 09:57 40 MG Acetaminophen/ Hydrocodone Bitart 1 tab Q4HP PRN PO 02/25/25 00:15 Ondansetron HCl 4 mg Q4HP PRN IV 02/25/25 00:15 Acetaminophen 650 mg Q6HP PRN PO 02/25/25 00:15 02/25/25 04:51 650 MG Diagnostic Test (Pha) 1 strip ACHS 02/25/25 07:00 02/26/25 11:30 1 STRIP Insulin Human Regular ACHS SC 02/25/25 07:00 02/25/25 22:15 2 UNITS Dextrose 50 ml UD PRN IV 02/25/25 00:15 Morphine Sulfate 1 mg Q4HP PRN IV 02/25/25 18:30 02/25/25 21:51 1 MG Sodium Chloride 1,000 ml @ 75 mls/hr [id number] IV 02/26/25 12:00 Enoxaparin Sodium 40 mg DAILY SC 02/27/25 10:00 Laboratory Results Laboratory Tests 02/26/25 04:59 Chemistry Test 02/26/25 04:59 Albumin 3.9 g/dL (3.2-4.8) Calcium Level 8.9 mg/dL (8.7-10.4) Magnesium Level 2.5 mg/dL (1.6-2.6) Total Protein 6.2 g/dL (5.7-8.2) LFT Test 02/26/25 04:59 Alanine Aminotransferase (ALT) 22 U/L (7-40) Alkaline Phosphatase 112 U/L (46-116) Aspartate Amino Transferase (AST) 21 U/L (<34) Total Bilirubin 0.8 mg/dL (0.2-1.0) Urinalysis Test 02/24/25 02:15 Urine Color Yellow (Yellow) Urine Clarity Clear (Clear) Urine pH 8.0 (5.0-9.0) Urine Specific [place] 1.021 (1.001-1.035) Urine Protein Negative (Negative) Urine Ketones Negative (Negative) Urine Blood Negative /uL (Negative) Urine Nitrite Negative (Negative) Urine Bilirubin Negative (Negative) Urine Urobilinogen Normal mg/dL (Negative) Urine Leukocyte Esterase Negative /uL (Negative) Urine RBC <1 /hpf (0 - 4) Urine Microscopic WBC 1 /HPF (0-5) Urine Squamous Epithelial Cells Few /hpf (<5) Urine Amorphous Crystals Few /hpf (None Seen) Urine Bacteria None seen /hpf (None Seen) Urine Glucose Normal mg/dL (Normal) Assessment/Plan Assessment/Plan Acute abdominal pain due to Acute diverticulitis- Start Tube Feedings. Outpatient colonoscopy L4 Compression Fracture- Chronic, outpatient spine surgery eval Hypokalemia- Supplemented Diabetes mellitus A1c 6.9- SSI History of CVA unable to speak. Goals of care discussion >18 mins FULL CODE Plan discussed with: Patient My Orders Orders - YOMAIRA FARAH MD Procedure Category Date Status Time Morphine Sulfate PHA 02/25/25 In Process Injection 18:30 * Dietary Consult CONS 02/26/25 Transmitted 11:44 Date of Service: Feb 26, 2025 Billing Provider: YOMAIRA FARAH MD Common Visit Codes: [id number] INP/OBS CARE(MOD) YOMAIRA FARAH MD Feb 26, 2025 13:03
[2025-02-26] MEDS ORDERED: Glucerna 1.2 Cal 1Liter BOTTLE GT SCH (16:15)
[2025-02-26] MEDS: Glucerna Carbsteady SHAKE Chocolate 8oz PO SCH (18:00)
[2025-02-27 01:00] VITALS: BP 106/65; PULSE 66; RESP 18; TEMP 98.4; O2SAT 95
[2025-02-27 05:00] VITALS: BP 99/63; PULSE 68; RESP 18; TEMP 98.4; O2SAT 98
[2025-02-27 08:10] VITALS: O2SAT 95
[2025-02-27 08:32] VITALS: BP 95/53; PULSE 67; RESP 19; TEMP 98.4; O2SAT 96
[2025-02-27] MEDS: ENOXAPARIN SOD 40 MG/0.4 ML SYRINGE SC SCH (10:17)
[2025-02-27] MEDS ORDERED: METR-344 PO (11:09)
[2025-02-27] MEDS ORDERED: LEVO500T91 PO (11:09)
[2025-02-27] MEDS ORDERED: HYDR-4902 PO (11:11)
--- NOTE | 2025-02-27 11:21 | DVHDS2 ---
Discharge Summary Date of Admission Feb 24, 2025 at 23:58 Date of Discharge: Feb 27, 2025 Admitting Diagnosis Acute diverticulitis Labs/Diagnostic Data: Laboratory Results Test 02/27/25 06:21 02/26/25 04:59 02/24/25 21:50 02/24/25 02:15 POC Glucose 92 mg/dl (70-106) White Blood Count 6.4 10^3/uL (4.4-10.8) Red Blood Count 4.29 10^6/uL (4.0-5.20) Hemoglobin 14.0 g/dL (12.2-16.2) Hematocrit 40.8 % (36.0-46.0) Mean Corpuscular Volume 95.0 fL (80.0-100.0) Mean Corpuscular Hemoglobin 32.6 pg (28.0-32.0) Mean Corpuscular Hemoglobin Concent 34.3 g/dL (32.0-36.0) Red Cell Distribution Width 13.1 % (11.8-14.3) Platelet Count 137 10^3/uL (140-450) Mean Platelet Volume 9.5 fL (6.9-10.8) Neutrophils (%) (Auto) 74.3 % (37.0-80.0) Lymphocytes (%) (Auto) 14.4 % (10.0-50.0) Monocytes (%) (Auto) 10.0 % (0.0-12.0) Eosinophils (%) (Auto) 1.0 % (0.0-7.0) Basophils (%) (Auto) 0.3 % (0.0-2.0) Neutrophils # (Auto) 4.7 10 ^3/uL (1.6-8.6) Lymphocytes # (Auto) 0.9 10 ^3/uL (0.4-5.4) Monocytes # (Auto) 0.6 10 ^3/uL (0-1.3) Eosinophils # (Auto) 0.1 10 ^3/uL (0-0.8) Basophils # (Auto) 0 10 ^3/uL (0-0.2) Nucleated Red Blood Cells 0.0 % Sodium Level 145 mmol/L (136-145) Potassium Level 3.8 mmol/L (3.5-5.1) Chloride Level 104 mmol/L (98-107) Carbon Dioxide Level 33 mmol/L (20-31) Anion Gap 8 (5-15) Blood Urea Nitrogen 14 mg/dL (9-23) Creatinine 0.53 mg/dL (0.550-1.02) Glomerular Filtration Rate Calc 105 mL/min (>90) BUN/Creatinine Ratio 26.4 (10.0-20.0) Serum Glucose 94 mg/dL (74-106) Calcium Level 8.9 mg/dL (8.7-10.4) Magnesium Level 2.5 mg/dL (1.6-2.6) Total Bilirubin 0.8 mg/dL (0.2-1.0) Aspartate Amino Transferase (AST) 21 U/L (<34) Alanine Aminotransferase (ALT) 22 U/L (7-40) Alkaline Phosphatase 112 U/L (46-116) Total Protein 6.2 g/dL (5.7-8.2) Albumin 3.9 g/dL (3.2-4.8) Hemoglobin A1c 6.9 % A1C (<5.7) Lactic Acid Level 1.3 mmol/L (0.4-2.0) Lipase 44 U/L (12-53) Urine Color Yellow (Yellow) Urine Clarity Clear (Clear) Urine pH 8.0 (5.0-9.0) Urine Specific [place] 1.021 (1.001-1.035) Urine Protein Negative (Negative) Urine Ketones Negative (Negative) Urine Blood Negative /uL (Negative) Urine Nitrite Negative (Negative) Urine Bilirubin Negative (Negative) Urine Urobilinogen Normal mg/dL (Negative) Urine Leukocyte Esterase Negative /uL (Negative) Urine RBC <1 /hpf (0 - 4) Urine Microscopic WBC 1 /HPF (0-5) Urine Squamous Epithelial Cells Few /hpf (<5) Urine Amorphous Crystals Few /hpf (None Seen) Urine Bacteria None seen /hpf (None Seen) Urine Glucose Normal mg/dL (Normal) Other Laboratory Tests 02/26/25 04:59 Brief Hx & Hospital Course: History of Present Illness 64-year-old female presents for evaluation of abdominal pain. Patient endorses a one day history of sharp lower abdominal pain that is nonradiating. Denies nausea or vomiting. No fever or chills. No diarrhea. Course of hospitalization: Patient was given bowel rest followed by antibiotic therapy with both Rocephin and Flagyl. Patient reports that her pain has improved. Feedings through her existing G-tube has been restarted. Patient was ambulating, having positive bowel movements. Patient was requesting to be discharged home today. She will follow up with her [place]CP [place]. She will be continued on antibiotic therapy with both Levaquin and Flagyl for the next seven days. For her abdominal pain she will be provided [place] 5/325 as needed for every 8 hours. Patient was agreeable with discharge plan. All questions answered. Physical examination General: Alert and Oriented x3. No acute distress. Well-nourished. Eyes: EOMI. Anicteric. HENT: Moist mucous membranes. Lungs: Clear to auscultation bilaterally. No accessory muscle use. Cardiovascular: Regular rate and rhythm. No murmur. No JVD. Abdomen: Soft, non-tender and non-distended. No palpable masses. Extremities: No edema. Non-tender. Skin: No rashes or lesions. Warm. Neurologic: No focal neurological deficits. CN II-XII grossly intact, but not individually tested. Psychiatric: Cooperative. Appropriate mood and affect. Total time spent with patient discussing and formulating plan of care: 35 minutes. This medical document was created using an electronic medical record system with [employer] dictation system. Although this document has been carefully reviewed, there may still be some phonetic and typographical errors. These areas are purely typographical due to imperfections of the software programs, and do not reflect any compromise in the patient's medical care. Condition at Discharge: Fair Final Diagnosis/Problems List Acute diverticulitis Secondary diagnosis: History of CVA L4 compression fracture Diabetes mellitus History of feeding tube placement Discharge Disposition: Home Discharge Instruct/Medications Diet: See Comment Activity: No Restrictions, As Tolerated Medications: Continue all home medications Levaquin 500 mg via G-tube x7 days Flagyl 500 mg t.i.d. via G-tube x7 days [place] 5/325 q.8 hours as needed for [id number] pain 36 Discharge Statement: "Patient was advised to return to the ER or call 911 if any headaches, dizziness, shortness of breath, chest pain, abdominal pain, bleeding, fevers, or worsening of medical condition. Patient was counseled about treatment plan, medications, possible side effects, patientverbalized understanding. All questions were answered to the best of my ability. This discharge took greater then 30 minutes in planning, reviewing documentation, counseling the patient, and discussing with other team members." ASSESSMENT ASSESSMENT Assessment Acute diverticulitis Date of Service: Feb 27, 2025 Billing Provider: DAMIAN RAYMUNDO NP Common Visit Codes: [id number]/[id number] DISCH DAY >30min DAMIAN RAYMUNDO NP Feb 27, 2025 11:21
[2025-02-27 12:49] VITALS: BP 102/70; PULSE 72; RESP 17; TEMP 97.9; O2SAT 97
== END 2025-02-27 16:06 | disposition home or self-care (01) | DRG 392 ==
LOC: ER 21:37 → OVERFLOW 23:58 → CENTRAL 02-25 14:40
PROVIDERS: ADMIT Internal Medicine; ATTEND Internal Medicine
DX: K57.32 Diverticulitis of large intestine without perforation or abscess without bleeding (principal); M48.56XA Collapsed vertebra, not elsewhere classified, lumbar region, initial encounter for fracture; E11.9 Type 2 diabetes mellitus without complications; I10 Essential (primary) hypertension; E87.6 Hypokalemia; N94.0 Mittelschmerz; M51.45 Schmorl's nodes, thoracolumbar region; E78.5 Hyperlipidemia, unspecified; Z93.1 Gastrostomy status; Z90.710 Acquired absence of both cervix and uterus; Z86.73 Personal history of transient ischemic attack (TIA), and cerebral infarction without residual deficits; Z83.3 Family history of diabetes mellitus; Z88.5 Allergy status to narcotic agent; Z91.041 Radiographic dye allergy status; Z79.899 Other long term (current) drug therapy
CPT/HCPCS: 36415; 74176; 80048; 80053; 81001; 82962; 83036; 83605; 83690; 83735; 85025; G0378; J1815; J1885; J1956; J2470; J3490